=== PATIENT | female | born 1945 | race Caucasian/White ===

== ENCOUNTER 2019-02-24 15:02 | Inpatient (IN) | payer MEDICARE ==
[~2019-02-24] VITALS: Ht 157.5 cm; Wt 65.0 kg
--- NOTE | 2019-02-24 15:02 | NUR ---
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
[2019-02-24 15:46] LABS: BASOPHILS # (AUTO) 0.03 x10^3/uL (0-0.1); BASOPHILS % (AUTO) 0 % (0-1); EOSINOPHILS # (AUTO) 0.09 x10^3/uL (0-0.4); EOSINOPHILS % (AUTO) 1 % (1-7); LYMPHOCYTES # (AUTO) 0.95 x10^3/uL (1-3.4); LYMPHOCYTES % (AUTO) 13 % (22-44); MD NO; MEAN CORPUSCULAR HEMOGLOBIN 29.9 pg (27.0-34.8); MEAN CORPUSCULAR HGB CONC 33.5 g/dL (32.4-35.8); MEAN CORPUSCULAR VOLUME 89.2 fL (80-100); MEAN PLATELET VOLUME 8.3 fL (7.4-10.4); MONOCYTES % (AUTO) 6 % (2-9); NEUTROPHILS # (AUTO) 5.63 x10^3/uL (1.8-6.8); NEUTROPHILS % (AUTO) 79 % (42-75); PLATELET COUNT 267 x10^3/uL (130-400); RED BLOOD COUNT 5.53 x10^6/uL (3.82-5.3); RED CELL DISTRIBUTION WIDTH 13.6 % (9.6-15.2)
[2019-02-24 15:52] LABS: ALANINE AMINOTRANSFERASE 16 U/L (12-78); ALBUMIN 3.5 g/dL (3.4-5.0); ANION GAP 14 mmol/L (5-15); CHLORIDE 94 mmol/L (98-107); CREATININE 0.94 mg/dL (0.55-1.02)
--- NOTE | 2019-02-24 15:54 | NUR ---
BROTHER (HETAL STEVENSON) [phone]
--- NOTE | 2019-02-24 15:58 | NUR ---
PT UPRIGHT ON GURNEY AWAKE & COMFORTABLE, RESPONDS APPROP TO STAFF, NAD, COMFORT MEASURES PROVIDED, CALL LIGHT WITHIN REACH.
[2019-02-24 16:08] LABS: ALKALINE PHOSPHATASE 78 U/L (45-117); BILIRUBIN,TOTAL 1.3 mg/dL (0.2-1.0); TOTAL PROTEIN 6.5 g/dL (6.4-8.2); TROPONIN I < 0.015 ng/mL (0.000-0.045)
[2019-02-24] MEDS ORDERED: LISI5TAB7 PO (16:08)
[2019-02-24] MEDS ORDERED: METF500T17 PO (16:08)
[2019-02-24] MEDS ORDERED: AMLO-150 PO (16:08)
[2019-02-24] MEDS ORDERED: SITA100T PO (16:08)
[2019-02-24] MEDS ORDERED: ASPI-496 PO (16:08)
[2019-02-24] MEDS ORDERED: METO25TA35 PO (16:08)
[2019-02-24] MEDS ORDERED: POTASSIUM CHLORIDE 20 MEQ TAB.ER.PRT ONE (16:33)
[2019-02-24] MEDS ORDERED: DOCUSATE 100 MG CAPSULE PO PRN (17:00)
[2019-02-24] MEDS ORDERED: ACETAMINOPHEN 325 MG TABLET PO PRN (17:00)
[2019-02-24] MEDS ORDERED: GLUCAGON 1 MG IM PRN (17:00)
[2019-02-24] MEDS ORDERED: POTASSIUM CHLORIDE 20 MEQ TAB.ER.PRT PO ONE ×2 (17:00→21:00)
[2019-02-24] MEDS ORDERED: POTASSIUM CHLORIDE 40 MEQ in SODIUM CHLORIDE 0.9% 500 ML IV ONE (17:00)
[2019-02-24] MEDS ORDERED: DEXTROSE 4 GM TAB.CHEW PO PRN (17:00)
[2019-02-24] MEDS ORDERED: DEXTROSE 50%, 50ML SYRINGE IVPush PRN (17:00)
[2019-02-24] MEDS ORDERED: ENALAPRILAT 1.25 MG/ML, 2ML IVPush PRN (17:00)
[2019-02-24] MEDS ORDERED: ONDANSETRON ODT 4 MG PO PRN (17:00)
--- NOTE | 2019-02-24 17:04 | NUR ---
PT REMAINS UPRIGHT ON RNEY AWAKE & COMFORTABLE, RESPONDS APPROP TO STAFF, NAD, COMFORT MEASURES PROVIDED, BROTHER AT BS, CALL LIGHT WITHIN REACH.
[2019-02-24] MEDS: SODIUM CHLORIDE 0.9% 1,000 ML IV SCH (17:18)
[2019-02-24 17:19] LABS: HEMOGLOBIN A1C 7.2 % (4.2-6.3)
--- NOTE | 2019-02-24 17:27 | NUR ---
Pt to be admitted to [facility], room 493-2. Report called to Jamil.
[2019-02-24] MEDS ORDERED: MAGNESIUM SULFATE PMX 4GM/100M 100 ML IV ONE (17:30)
[2019-02-24 17:56] VITALS: BP 168/101
[2019-02-24] MEDS: ENOXAPARIN 40 MG/0.4 ML SQ SCH (18:17)
[2019-02-24 19:45] VITALS: BP 167/100
[2019-02-24 19:50] VITALS: BP 138/88
[2019-02-24 19:56] VITALS: BP 120/87
[2019-02-24] MEDS: SODIUM CHLORIDE FLUSH 10ML SYR IVF SCH (20:32)
[2019-02-24] MEDS: INSULIN LISPRO 100 UNITS/ML, PEN SQ-INSULIN SCH (20:32)
[2019-02-25] VITALS (12 sets, daily range): BP systolic 75–161; BP diastolic 54–96
[2019-02-25 04:14] LABS: MICROSCOPIC NOT IND
[2019-02-25 04:16] LABS: CULTURE INDICATED? NO
[2019-02-25 06:38] LABS: BASOPHILS # (AUTO) 0.02 x10^3/uL (0-0.1); BASOPHILS % (AUTO) 0 % (0-1); EOSINOPHILS # (AUTO) 0.06 x10^3/uL (0-0.4); EOSINOPHILS % (AUTO) 1 % (1-7); LYMPHOCYTES # (AUTO) 1.09 x10^3/uL (1-3.4); LYMPHOCYTES % (AUTO) 19 % (22-44); MD NO; MEAN CORPUSCULAR HEMOGLOBIN 29.6 pg (27.0-34.8); MEAN CORPUSCULAR HGB CONC 33.2 g/dL (32.4-35.8); MEAN CORPUSCULAR VOLUME 89.1 fL (80-100); MONOCYTES # (AUTO) 0.53 x10^3/uL (0.2-0.8); MONOCYTES % (AUTO) 9 % (2-9); NEUTROPHILS # (AUTO) 4.09 x10^3/uL (1.8-6.8); NEUTROPHILS % (AUTO) 71 % (42-75); PLATELET COUNT 222 x10^3/uL (130-400); RED BLOOD COUNT 4.76 x10^6/uL (3.82-5.3); RED CELL DISTRIBUTION WIDTH 13.8 % (9.6-15.2)
[2019-02-25 06:41] LABS: ANION GAP 6 mmol/L (5-15); CALCIUM 8.2 mg/dL (8.5-10.1); CHLORIDE 102 mmol/L (98-107); CREATININE 0.78 mg/dL (0.55-1.02)
[2019-02-25] MEDS: INSULIN LISPRO 100 UNITS/ML, PEN SQ-INSULIN SCH ×4 (08:45→20:58)
[2019-02-25] MEDS: ASPIRIN 325 MG TABLET EC PO SCH (08:45)
[2019-02-25] MEDS: SODIUM CHLORIDE 0.9% 1,000 ML IV SCH ×2 (08:45→16:54)
[2019-02-25] MEDS ORDERED: METOPROLOL TARTRATE 25 MG TABLET PO SCH (09:00)
[2019-02-25] MEDS ORDERED: AMLODIPINE 5 MG TABLET PO SCH (09:00)
[2019-02-25] MEDS ORDERED: LISINOPRIL 40 MG TABLET PO SCH (09:00)
[2019-02-25] MEDS: SODIUM CHLORIDE FLUSH 10ML SYR IVF SCH ×2 (09:00→20:58)
[2019-02-25] MEDS ORDERED: POTASSIUM CHLORIDE 20 MEQ TAB.ER.PRT PO SCH ×2 (09:30→17:00)
[2019-02-25] MEDS: ENOXAPARIN 40 MG/0.4 ML SQ SCH (16:56)
[2019-02-25] MEDS ORDERED: BISACODYL 10 MG SUPP PR PRN (18:00)
[2019-02-25] MEDS ORDERED: POLYETHYLENE GLYCOL 17 GM PACKET NG PRN (18:00)
[2019-02-26] VITALS (8 sets, daily range): BP systolic 135–175; BP diastolic 90–108
[2019-02-26] MEDS: SODIUM CHLORIDE 0.9% 1,000 ML IV SCH (02:33)
[2019-02-26 05:35] LABS: ANION GAP 5 mmol/L (5-15); CALCIUM 7.9 mg/dL (8.5-10.1); CHLORIDE 108 mmol/L (98-107)
[2019-02-26 05:37] LABS: CREATININE 0.66 mg/dL (0.55-1.02)
[2019-02-26] MEDS: INSULIN LISPRO 100 UNITS/ML, PEN SQ-INSULIN SCH ×4 (08:43→20:01)
[2019-02-26] MEDS: SODIUM CHLORIDE FLUSH 10ML SYR IVF SCH ×2 (09:00→20:01)
[2019-02-26] MEDS ORDERED: AMLODIPINE 5 MG TABLET PO SCH (12:00)
[2019-02-26] MEDS ORDERED: LISINOPRIL 10 MG TABLET PO SCH (12:00)
[2019-02-26] MEDS: ASPIRIN 325 MG TABLET EC PO SCH (12:15)
[2019-02-26] MEDS: ENOXAPARIN 40 MG/0.4 ML SQ SCH (17:49)
[2019-02-27] VITALS (13 sets, daily range): BP systolic 87–159; BP diastolic 65–97
[2019-02-27 04:52] LABS: BASOPHILS # (AUTO) 0.02 x10^3/uL (0-0.1); BASOPHILS % (AUTO) 0 % (0-1); EOSINOPHILS # (AUTO) 0.12 x10^3/uL (0-0.4); EOSINOPHILS % (AUTO) 2 % (1-7); LYMPHOCYTES # (AUTO) 1.34 x10^3/uL (1-3.4); LYMPHOCYTES % (AUTO) 23 % (22-44); MD NO; MEAN CORPUSCULAR HEMOGLOBIN 29.9 pg (27.0-34.8); MEAN CORPUSCULAR HGB CONC 33.6 g/dL (32.4-35.8); MEAN CORPUSCULAR VOLUME 88.9 fL (80-100); MONOCYTES # (AUTO) 0.43 x10^3/uL (0.2-0.8); MONOCYTES % (AUTO) 7 % (2-9); NEUTROPHILS # (AUTO) 4.01 x10^3/uL (1.8-6.8); NEUTROPHILS % (AUTO) 68 % (42-75); PLATELET COUNT 220 x10^3/uL (130-400); RED BLOOD COUNT 4.83 x10^6/uL (3.82-5.3); RED CELL DISTRIBUTION WIDTH 13.9 % (9.6-15.2)
[2019-02-27 04:57] LABS: ALBUMIN 2.8 g/dL (3.4-5.0); ANION GAP 8 mmol/L (5-15); CALCIUM 8.6 mg/dL (8.5-10.1); CHLORIDE 98 mmol/L (98-107)
[2019-02-27 05:01] LABS: ALANINE AMINOTRANSFERASE 13 U/L (12-78); ALKALINE PHOSPHATASE 73 U/L (45-117); BILIRUBIN,TOTAL 0.9 mg/dL (0.2-1.0); CREATININE 0.62 mg/dL (0.55-1.02); TOTAL PROTEIN 5.6 g/dL (6.4-8.2)
[2019-02-27] MEDS ORDERED: METOPROLOL SUCCINATE 25 MG TAB.ER.24H PO SCH (06:00)
[2019-02-27] MEDS: ASPIRIN 325 MG TABLET EC PO SCH (08:48)
[2019-02-27] MEDS: INSULIN LISPRO 100 UNITS/ML, PEN SQ-INSULIN SCH ×4 (08:49→20:54)
[2019-02-27] MEDS: SODIUM CHLORIDE FLUSH 10ML SYR IVF SCH ×2 (08:54→20:55)
[2019-02-27] MEDS ORDERED: POTASSIUM CHLORIDE 20 MEQ TAB.ER.PRT PO ONE (10:30)
[2019-02-27] MEDS: METOPROLOL SUCCINATE 25 MG TAB.ER.24H PO SCH ×2 (16:43→20:55)
[2019-02-27] MEDS: ENOXAPARIN 40 MG/0.4 ML SQ SCH (16:46)
[2019-02-28] VITALS (12 sets, daily range): BP systolic 79–146; BP diastolic 61–95
[2019-02-28 05:27] LABS: ALBUMIN 2.7 g/dL (3.4-5.0); ANION GAP 5 mmol/L (5-15); CHLORIDE 98 mmol/L (98-107)
[2019-02-28 05:30] LABS: ALANINE AMINOTRANSFERASE 19 U/L (12-78); ALKALINE PHOSPHATASE 89 U/L (45-117); BILIRUBIN,TOTAL 0.6 mg/dL (0.2-1.0); CREATININE 0.82 mg/dL (0.55-1.02); TOTAL PROTEIN 5.3 g/dL (6.4-8.2)
[2019-02-28 05:33] LABS: BASOPHILS # (AUTO) 0.02 x10^3/uL (0-0.1); BASOPHILS % (AUTO) 0 % (0-1); EOSINOPHILS # (AUTO) 0.16 x10^3/uL (0-0.4); EOSINOPHILS % (AUTO) 2 % (1-7); LYMPHOCYTES # (AUTO) 1.67 x10^3/uL (1-3.4); LYMPHOCYTES % (AUTO) 23 % (22-44); MD NO; MEAN CORPUSCULAR HEMOGLOBIN 29.5 pg (27.0-34.8); MEAN CORPUSCULAR HGB CONC 33.3 g/dL (32.4-35.8); MEAN CORPUSCULAR VOLUME 88.8 fL (80-100); MEAN PLATELET VOLUME 8.1 fL (7.4-10.4); MONOCYTES # (AUTO) 0.64 x10^3/uL (0.2-0.8); MONOCYTES % (AUTO) 9 % (2-9); NEUTROPHILS # (AUTO) 4.69 x10^3/uL (1.8-6.8); NEUTROPHILS % (AUTO) 65 % (42-75); PLATELET COUNT 241 x10^3/uL (130-400); RED BLOOD COUNT 4.58 x10^6/uL (3.82-5.3)
[2019-02-28] MEDS ORDERED: METOPROLOL SUCCINATE 25 MG TAB.ER.24H PO SCH (09:00)
[2019-02-28] MEDS: SODIUM CHLORIDE FLUSH 10ML SYR IVF SCH ×2 (09:00→21:26)
[2019-02-28] MEDS: METOPROLOL SUCCINATE 25 MG TAB.ER.24H PO SCH (10:36)
[2019-02-28] MEDS: INSULIN LISPRO 100 UNITS/ML, PEN SQ-INSULIN SCH ×4 (10:36→21:26)
[2019-02-28] MEDS: ASPIRIN 325 MG TABLET EC PO SCH (10:36)
[2019-02-28] MEDS: ENOXAPARIN 40 MG/0.4 ML SQ SCH (18:02)
[2019-03-01 01:39] VITALS: BP 131/85
[2019-03-01 01:40] VITALS: BP 116/81
[2019-03-01 01:41] VITALS: BP 107/69
[2019-03-01 08:30] VITALS: BP 153/69
[2019-03-01] MEDS: METOPROLOL SUCCINATE 25 MG TAB.ER.24H PO SCH (08:53)
[2019-03-01] MEDS: ASPIRIN 325 MG TABLET EC PO SCH (08:54)
[2019-03-01] MEDS: INSULIN LISPRO 100 UNITS/ML, PEN SQ-INSULIN SCH ×3 (08:55→16:55)
[2019-03-01] MEDS: SODIUM CHLORIDE FLUSH 10ML SYR IVF SCH (08:56)
[2019-03-01] MEDS ORDERED: METO25TA91 PO (09:22)
[2019-03-01] MEDS: ENOXAPARIN 40 MG/0.4 ML SQ SCH (16:55)
[2019-03-02] MEDS ORDERED: METOPROLOL SUCCINATE 25 MG TAB.ER.24H PO SCH (09:00)
== END 2019-03-01 17:54 | DRG 312 ==
LOC: ED 15:14 → 4EST 16:28 → 4WST 02-26 16:51
PROVIDERS: ADMIT Internal Medicine; ATTEND Internal Medicine
DX: I95.1 Orthostatic hypotension (principal); E86.0 Dehydration; E87.6 Hypokalemia; D75.1 Secondary polycythemia; E83.42 Hypomagnesemia; I08.3 Combined rheumatic disorders of mitral, aortic and tricuspid valves; E11.65 Type 2 diabetes mellitus with hyperglycemia; I10 Essential (primary) hypertension; E11.51 Type 2 diabetes mellitus with diabetic peripheral angiopathy without gangrene; G93.89 Other specified disorders of brain; Z79.899 Other long term (current) drug therapy; Z86.73 Personal history of transient ischemic attack (TIA), and cerebral infarction without residual deficits; Z91.14 Patient's other noncompliance with medication regimen
CPT/HCPCS: 36415; 70551; 71045; 80048; 80053; 81003; 82533; 82962; 83036; 83735; 84100; 84443; 84484; 85025; 93306; 93880; 99291; G0378; J1650; J3480; 92523-GN; G0515-GN; J1815; J3475; J7030; J7040

== ENCOUNTER 2019-04-12 20:31 | Emergency (ER) | payer MEDICARE ==
[~2019-04-12] VITALS: Ht 157.5 cm; Wt 53.0 kg
[~2019-04-12 20:31] MED LIST: AMLO-150 PO; ASPI-496 PO; LISI5TAB7 PO; METF500T17 PO; METO25TA35 PO; METO25TA91 PO; SITA100T PO
--- NOTE | 2019-04-12 20:40 | NUR ---
task rn: pt freddya after mglf. pt was walking home frmom pcp appointment today and got tired and fell. obvious deformity to right fifth finger and abrasion to right knee. denies loc, denies hitting head. no other trauma. 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 pt connected to monitors. vss. Dr. Hinojosa to bs for assessment. awaiting orders.
--- NOTE | 2019-04-12 21:36 | NUR ---
ER PA AT TO DISCUSS R FINGER REDUCTION WITH PT.
[2019-04-12] MEDS ORDERED: LIDOCAINE-MPF 1%, 5ML ONE (21:41)
[2019-04-12] MEDS ORDERED: BUPIVACAINE 0.25% ONE (21:41)
[2019-04-12 22:30] VITALS: BP 148/84
[2019-04-12] MEDS ORDERED: LIDOCAINE-MPF 1%, 5ML INFIL ONE (22:30)
--- NOTE | 2019-04-12 22:30 | NUR ---
R 5TH FINGER REDUCED BY ED PA WITH LIDOCAINE, PT TOLERATED WELL. ALUMINUM SPLINT AND NELSON TAPE APPLIED BY SUPERVISOR METALIZING. D/C INSTRUCTIONS, MEDS & F/U APPT RV'WD WITH PT, SHE VERBALIZES UNDERSTANDING. RX GIVEN X1. CAB VOUCHER PROVIDED TO PT. PT AMBULATED OUT OF ED WITHOUT DIFFICULTY.
== END 2019-04-12 22:56 | disposition home or self-care (01) ==
LOC: ED 21:44
DX: S63.286A Dislocation of proximal interphalangeal joint of right little finger, initial encounter (principal); S80.01XA Contusion of right knee, initial encounter; I10 Essential (primary) hypertension; E11.9 Type 2 diabetes mellitus without complications; Z86.73 Personal history of transient ischemic attack (TIA), and cerebral infarction without residual deficits; W18.30XA Fall on same level, unspecified, initial encounter; Y93.89 Activity, other specified; Y92.410 Unspecified street and highway as the place of occurrence of the external cause; Y99.8 Other external cause status
CPT/HCPCS: 29130; 99283